=== PATIENT | female | born 1975 ===

== ENCOUNTER 2017-06-24 17:20 | Inpatient (IN) | payer BC ==
[2017-06-24] MEDS ORDERED: ALBUTEROL SULFATE 2.5 MG/3 ML NEBU. NEB (17:45)
[2017-06-24] MEDS ORDERED: ONDANSETRON PF 4 MG/2 ML VIAL. IV (17:45)
[2017-06-24] MEDS: LISINOPRIL 5 MG TABLET. PO (18:30)
[2017-06-24] MEDS: NICOTINE 21MG PATCH. TD (18:30)
[2017-06-24 19:17] LABS: ANION GAP 11 (6-14); BLOOD UREA NITROGEN 11 mg/dL (7-20); CALCIUM 8.8 mg/dL (8.5-10.1); CARBON DIOXIDE 25 mmol/L (21-32); CHLORIDE 106 mmol/L (98-107); CREATININE 1.1 mg/dL (0.6-1.0); GLUCOSE 124 mg/dL (70-99); POTASSIUM 3.9 mmol/L (3.5-5.1); SODIUM 142 mmol/L (136-145)
[2017-06-24] MEDS: rOPINIRole 0.25 MG TABLET. PO (20:44)
[2017-06-24] MEDS: MONTELUKAST SODIUM 10 MG TABLET. PO (20:44)
[2017-06-24] MEDS: traMADol 50 MG TABLET PO (20:44)
[2017-06-25] MEDS: KETOROLAC 30 MG/ML INJ. IV ×3 (00:46→16:33)
[2017-06-25 04:37] LABS: ADD MAN DIFF? NO
[2017-06-25 04:52] LABS: BASO % 0 % (0-3); EOS % 3 % (0-3); HEMATOCRIT 42.4 % (36.0-47.0); HEMOGLOBIN 14.1 g/dL (12.0-15.5); LYMPH # 3.5 x10^3/uL (1.0-4.8); LYMPH % 48 % (24-48); MEAN CORPUSCULAR HEMOGLOBIN 29 pg (25-35); MEAN CORPUSCULAR HGB CONC 33 g/dL (31-37); MEAN CORPUSCULAR VOLUME 88 fL (79-100); MONO % 7 % (0-9); NEUT % 42 % (31-73); PLATELET COUNT 200 x10^3/uL (140-400); RED BLOOD COUNT 4.81 x10^6/uL (3.50-5.40); RED CELL DISTRIBUTION WIDTH 14.2 % (11.5-14.5); WHITE BLOOD COUNT 7.4 x10^3/uL (4.0-11.0)
[2017-06-25] MEDS: IPRATRPIUM/ALBUTEROL 0.5/2.5MG 3 ML NEBU. NEB ×2 (07:53→12:16)
[2017-06-25] MEDS: traMADol 50 MG TABLET PO (08:36)
[2017-06-25] MEDS: MAGNESIUM CHLORIDE ER 64 MG TABLET.ER PO (08:39)
[2017-06-25] MEDS: NICOTINE 21MG PATCH. TD (08:40)
[2017-06-25] MEDS: LISINOPRIL 5 MG TABLET. PO (08:40)
[2017-06-25] MEDS ORDERED: IOHEXOL 300 MG/ML 100ML VIAL. (12:12)
[2017-06-25] MEDS ORDERED: LIDOCAINE 2% 20 ML VIAL. (12:12)
[2017-06-25] MEDS ORDERED: NITROGLYCERIN 200 MCG/2 ML SYRINGE FOR CATH/VASC LAB. (12:43)
[2017-06-25] MEDS ORDERED: HEPARIN for IV BOLUS 10,000 UNIT/10 ML VIAL. (12:43)
[2017-06-25] MEDS ORDERED: VERAPAMIL 5 MG/2 ML VIAL. (12:43)
[2017-06-25] MEDS ORDERED: fentaNYL PF VIAL 100 MCG/2 ML VIAL (12:43)
[2017-06-25] MEDS ORDERED: MIDAZOLAM HCL/PF 5 MG/5 ML VIAL. (12:43)
[2017-06-25] MEDS: LIDOCAINE 2% 20 ML VIAL. IJ (13:12)
[2017-06-25] MEDS: NITROGLYCERIN 200 MCG/2 ML SYRINGE FOR CATH/VASC LAB. IART (13:13)
[2017-06-25] MEDS: IOHEXOL 300 MG/ML 100ML VIAL. IART (13:13)
[2017-06-25] MEDS: VERAPAMIL 5 MG/2 ML VIAL. IART (13:14)
[2017-06-25] MEDS: fentaNYL PF VIAL 100 MCG/2 ML VIAL IV (13:15)
[2017-06-25] MEDS: MIDAZOLAM HCL/PF 5 MG/5 ML VIAL. IV (13:15)
[2017-06-25] MEDS: HEPARIN for IV BOLUS 10,000 UNIT/10 ML VIAL. IART (13:17)
[2017-06-25] MEDS ORDERED: diphenhydrAMINE HCL 25 MG CAPSULE PO (16:15)
== END 2017-06-25 19:00 | disposition home or self-care (01) | DRG 281 ==
LOC: 2 SOUTH 17:20
PROC: 4A023N7 Measurement of Cardiac Sampling and Pressure, Left Heart, Percutaneous Approach (ICD-10-PCS; principal; 2017-06-25)
PROC: B2111ZZ Fluoroscopy of Multiple Coronary Arteries using Low Osmolar Contrast (ICD-10-PCS; 2017-06-25)
PROC: B2151ZZ Fluoroscopy of Left Heart using Low Osmolar Contrast (ICD-10-PCS; 2017-06-25)
DX: I21.4 Non-ST elevation (NSTEMI) myocardial infarction (principal); Z68.42 Body mass index [BMI] 45.0-49.9, adult; E66.9 Obesity, unspecified; F17.210 Nicotine dependence, cigarettes, uncomplicated; I10 Essential (primary) hypertension; F32.9 Major depressive disorder, single episode, unspecified; F41.9 Anxiety disorder, unspecified; Z91.012 Allergy to eggs; Z88.0 Allergy status to penicillin; Z88.8 Allergy status to other drugs, medicaments and biological substances; Z91.09 Other allergy status, other than to drugs and biological substances; Z82.49 Family history of ischemic heart disease and other diseases of the circulatory system
CPT/HCPCS: 36415; 80048; 85025; 93458; 94640; 94667; 99152; 99153; C1769; C1892; J1644; J1885; J2250; J3010; J3490; Q9967